=== PATIENT | female | born 1990 | race Caucasian/White ===

== ENCOUNTER 2021-01-10 10:55 | Emergency (ER) | payer OTHER ==
[2021-01-10 11:26] VITALS: RESP 18; TEMP 98
[2021-01-10] MEDS ORDERED: SODIUM CHLORIDE 0.9% 1,000 ML IV ONE (11:55)
[2021-01-10] MEDS ORDERED: ACETAMINOPHEN TAB 325 MG TAB PO STA (12:02)
--- NOTE | 2021-01-10 12:05 | US ---
EXAMINATION TYPE: Transabdominal DATE OF EXAM: 01/10/2021 11:50 AM COMPARISON: NONE CLINICAL HISTORY: pain. Pt states LLQ pain x 1 day, pt states she has a septated uterus EXAM PERFORMED: Transabdominal (TA) EXAM MEASUREMENTS: GESTATIONAL AGE / DATING Physician Established: Not yet established Dates by LMP: (7 weeks/0 days) EDC: 08/29/2021 Dates by First Scan: No previous this is first scan Dates by Current Scan for: (7 weeks/5 days) EDC: 08/24/2021 MATERNAL ANATOMY Uterus: 7.9 x 4.2 x 6.2 cm, bicornuate in appearance Right Ovary: 2.6 x 2.2 x 2.0 cm Left Ovary: 2.5 x 1.4 x 1.5 cm Post CDS / Adnexa: wnl Presence of free fluid: No Presence of corpus luteal cyst: Left ovary= 0.9 x 1.2 x 1.1 cm GESTATION / SURVEY CRL: 1.3 7weeks/ 5 days) Yolk Sac (normal less than 6mm): 3mm Heart Rate: 147 bpm Rhythm: Normal IUP: Viable IUP Date of LMP: 11/22/2020 Beta HcG (if available): Not available at this time Viable IUP, Uterus appeared bicornuate with IUP located within the "left horn" IMPRESSION: 1. Bicornuate uterus. 2. Intrauterine gestation within the left horn of the uterus. 3. Gestational age estimated at 7 weeks 5 days based on crown-rump length. Cardiac activity measures 147 bpm.
--- NOTE | 2021-01-10 12:24 | ED ---
General Adult HPI - General Chief complaint: Abdominal Pain Stated complaint: Abd Pain Time Seen by Provider: 01/10/21 11:43 Source: patient Mode of arrival: ambulatory Limitations: no limitations - History of Present Illness Initial comments: 30-year-old female patient presenting to the emergency department today for evaluation of left pelvic pain radiating to the left groin and lower back. States symptoms started yesterday. She did have positive test at home and believe she is on 7-8 weeks along. She is . Denies any abnormal vagi nal bleeding or discharge. Denies hematuria, dysuria, urinary frequency, urinary urgency. Denies fever or chills. States she has had a lot of nausea. States she is able to keep down food and fluids. Patient denies any recent rash, cough, shortness of breath, chest pain, numbness, tingling, dizziness, weakness, headache, visual changes, or any other complaints. - Related Data Home Medications Medication Instructions Recorded Confirmed Multivitamins, Thera [Multivitamin 1 tab PO DAILY 01/10/21 01/10/21 (formulary)] Previous Rx's Medication Instructions Recorded Cephalexin [Keflex] 500 mg PO Q6H #28 cap 01/10/21 Allergies Allergy/AdvReac Type Severity Reaction Status Date / Time No Known Allergies Allergy Verified 01/10/21 13:21 Review of Systems ROS Statement: Those systems with pertinent positive or pertinent negative responses have been documented in the HPI. ROS Other: All systems not noted in ROS Statement are negative. Past Medical History Past Medical History: No Reported History History of Any Multi-Drug Resistant Organisms: None Reported Past Surgical History: No Surgical Hx Reported Past Psychological History: No Psychological Hx Reported Smoking Status: Never smoker Past Alcohol Use History: Occasional Past Drug Use History: None Reported General Exam Limitations: no limitations General appearance: alert, in no apparent distress, other (This is a well- developed, well-nourished adult female patient in no acute distress. Vital signs upon presentation are temperature 98.0F, pulse 97, respirations 18, blood pressure 117/73, pulse ox 100% on room air.) Eye exam: Present: normal appearance, PERRL, EOMI. Absent: scleral icterus, conjunctival injection, periorbital swelling ENT exam: Present: normal exam, normal oropharynx, mucous membranes moist Respiratory exam: Present: normal lung sounds bilaterally. Absent: respiratory distress, wheezes, rales, rhonchi, stridor Cardiovascular Exam: Present: regular rate, normal rhythm, normal heart sounds. Absent: systolic murmur, diastolic murmur, rubs, gallop, clicks GI/Abdominal exam: Present: soft, tenderness (Left lower quadrant), normal bowel sounds. Absent: distended, guarding, rebound, rigid Neurological exam: Present: alert, oriented X3, CN II-XII intact Psychiatric exam: Present: normal affect, normal mood Skin exam: Present: warm, dry, intact, normal color. Absent: rash Course Vital Signs 01/10/21 01/10/21 11:24 13:58 Temperature 98.0 F Pulse Rate 97 77 Respiratory 18 18 Rate Blood Pressure 117/73 110/64 O2 Sat by Pulse 100 99 Oximetry Medical Decision Making - Medical Decision Making 30 year-old female patient presents to the emergency department for evaluation of left pelvic pain with radiation to the left groin. She is , . Physical exam reveals left lower quadrant tenderness. Labs reviewed and did reveal hCG of 62,000. Ultrasound showed a viable intrauterine measuring 7 weeks 1 day of a heart rate of 142. No other complicating process is seen. She is given Tylenol. Upon reevaluation states her pain is somewhat improved. I did go over all results with her. She is instructed to increase fluids. Rest. Follow up with OBGYN as soon as possible. She is instructed return for any new, worsening, or concerning symptoms. Case discussed in my attending Dr. Valles. - Lab Data Result diagrams: 01/10/21 12:02 01/10/21 12:02 Lab Results 01/10/21 01/10/21 01/10/21 Range/Units 12:02 12:02 12:02 WBC 6.3 (3.8-10.6) k/uL RBC 4.48 (3.80-5.40) m/uL Hgb 14.0 (11.4-16.0) gm/dL Hct 41.4 (34.0-46.0) % MCV 92.5 (80.0-100.0) fL MCH 31.2 (25.0-35.0) pg MCHC 33.8 (31.0-37.0) g/dL RDW 12.9 (11.5-15.5) % Plt Count 198 (150-450) k/uL MPV 9.3 Neutrophils % 71 % Lymphocytes % 19 % Monocytes % 7 % Eosinophils % 1 % Basophils % 1 % Neutrophils # 4.4 (1.3-7.7) k/uL Lymphocytes # 1.2 (1.0-4.8) k/uL Monocytes # 0.5 (0-1.0) k/uL Eosinophils # 0.1 (0-0.7) k/uL Basophils # 0.0 (0-0.2) k/uL Sodium 134 L (137-145) mmol/L Potassium 4.0 (3.5-5.1) mmol/L Chloride 101 (98-107) mmol/L Carbon Dioxide 27 (22-30) mmol/L Anion Gap 6 mmol/L BUN 5 L (7-17) mg/dL Creatinine 0.50 L (0.52-1.04) mg/dL Est GFR (CKD-EPI)AfAm >90 (>60 ml/min/1.73 sqM) Est GFR (CKD-EPI)NonAf >90 (>60 ml/min/1.73 sqM) Glucose 93 (74-99) mg/dL Calcium 9.6 (8.4-10.2) mg/dL Total Bilirubin 1.0 (0.2-1.3) mg/dL AST 34 (14-36) U/L ALT 9 (4-34) U/L Alkaline Phosphatase 21 L (38-126) U/L Total Protein 7.2 (6.3-8.2) g/dL Albumin 4.5 (3.5-5.0) g/dL HCG, Quant 26384.2 mIU/mL Urine Color Yellow Urine Appearance Cloudy H (Clear) Urine pH 6.0 (5.0-8.0) Ur Specific [place] 1.022 (1.001-1.035) Urine Protein Trace H (Negative) Urine Glucose (UA) Negative (Negative) Urine Ketones 1+ H (Negative) Urine Blood Negative (Negative) Urine Nitrite Negative (Negative) Urine Bilirubin Negative (Negative) Urine Urobilinogen <2.0 (<2.0) mg/dL Ur Leukocyte Esterase Large H (Negative) Urine RBC 2 (0-5) /hpf Urine WBC 6 H (0-5) /hpf Ur Squamous Epith Cells 12 H (0-4) /hpf Urine Bacteria Occasional H (None) /hpf Urine Mucus Many H (None) /hpf - Radiology Data Radiology results: report reviewed Ultrasound is obtained. Report reviewed in its entirety. Impression by Dr. Georges shows bicornuate uterus. Intrauterine gestation within the left corner the uterus. Gestational age measured at 7 weeks 5 days based on crown-rump length. Cardiac activity measures 147 bpm. Disposition Clinical Impression: Abdominal pain during Disposition: HOME SELF-CARE Condition: Good Instructions (If sedation given, give patient instructions): Abdominal Pain in (ED) Additional Instructions: Follow-up with the [facility] for recheck as soon as possible, call tomorrow for further instruction and possible sooner appointment. Increase fluids. Rest. Return for any new, worsening, or concerning symptoms. Prescriptions: Cephalexin [Keflex] 500 mg PO Q6H #28 cap Is patient prescribed a controlled substance at d/c from ED?: No Referrals: Juju Garcia DO [Doctor of Osteopathic Medicine] - 1-2 days Time of Disposition: 13:47
[2021-01-10 12:37] LABS: Basophils % (A) 1 %; Eosinophils # (A) 0.1 k/uL (0-0.7); Eosinophils % (A) 1 %; HCT 41.4 % (34.0-46.0); Lymphocytes # (A) 1.2 k/uL (1.0-4.8); Lymphocytes % (A) 19 %; MCH 31.2 pg (25.0-35.0); MCHC 33.8 g/dL (31.0-37.0); MCV 92.5 fL (80.0-100.0); Mean Platelet Volume 9.3; Monocytes # (A) 0.5 k/uL (0-1.0); Monocytes % (A) 7 %; Neutrophils # (A) 4.4 k/uL (1.3-7.7); Neutrophils % (A) 71 %; Platelet Count 198 k/uL (150-450); RBC 4.48 m/uL (3.80-5.40); RDW 12.9 % (11.5-15.5); WBC 6.3 k/uL (3.8-10.6)
[2021-01-10 12:38] LABS: ALT 9 U/L (4-34); African American GFR (CKD) >90 (>60 ml/min/1.73 sqM); Albumin 4.5 g/dL (3.5-5.0); Anion Gap 6 mmol/L; Blood Urea Nitrogen 5 mg/dL (7-17); Calcium 9.6 mg/dL (8.4-10.2); Carbon Dioxide 27 mmol/L (22-30); Chloride 101 mmol/L (98-107); Glucose 93 mg/dL (74-99); Non-African American GFR(CKD) >90 (>60 ml/min/1.73 sqM); Sodium 134 mmol/L (137-145); Total Protein 7.2 g/dL (6.3-8.2)
[2021-01-10 12:47] LABS: AST 34 U/L (14-36); Alkaline Phosphatase 21 U/L (38-126)
[2021-01-10 13:03] LABS: Appearance,Urine Cloudy (Clear); Bacteria,Urine Occasional /hpf; Bilirubin,Urine Negative (Negative); Blood,Urine Negative (Negative); Color,Urine Yellow; Glucose,Urine (UA) Negative (Negative); Ketones,Urine 1+ (Negative); Leukocyte Esterase,Urine Large (Negative); Mucus,Urine Many /hpf; Nitrite,Urine Negative (Negative); Protein,Urine Trace (Negative); RBC,Urine 2 /hpf (0-5); Specific Gravity,Urine 1.022 (1.001-1.035); Squamous Epithelial Cell,Urine 12 /hpf (0-4); Urobilinogen,Urine <2.0 mg/dL (<2.0); WBC,Urine 6 /hpf (0-5)
[2021-01-10 13:26] LABS: HCG,Quantitative Serum 62806.2 mIU/mL
[2021-01-10] MEDS ORDERED: CEPHALEXIN 500MG STARTER PACK 4 CAP BTL PO STA (13:46)
[2021-01-10 13:59] VITALS: BP 110/64; PULSE 77
== END 2021-01-10 13:58 | disposition home or self-care (01) ==
LOC: EC 10:55
DX: O26.891 Other specified pregnancy related conditions, first trimester (principal); R10.32 Left lower quadrant pain; Z3A.01 Less than 8 weeks gestation of pregnancy
CPT/HCPCS: 36415; 76801; 80053; 81001; 84702; 85025; 99284

== ENCOUNTER → 2021-02-11 | Outpatient (CLI) | payer MEDICAID ==
[2021-02-12 00:18] LABS: HCT 36.3 % (37.2-46.3); MCH 31.3 pg (27.0-32.0); MCHC 33.1 g/dL (32.0-37.0); MCV 94.5 fL (80.0-97.0); Mean Platelet Volume 10.1 fL (9.5-12.2); Platelet Count 275 X 10*3/uL (140-440); RBC 3.84 X 10*6/uL (4.10-5.20); RDW 12.7 % (11.5-14.5); WBC 9.28 X 10*3/uL (4.50-10.00)
[2021-02-12 02:05] LABS: HIV 2 AB Non-Reactive (Non-Reactive); HIV AB P24 Non-Reactive (Non-Reactive); HIV P24 AG Non-Reactive (Non-Reactive)
[2021-02-12 02:52] LABS: African American GFR (CKD) 143.8 (60.0-200.0)
[2021-02-12 04:33] LABS: Hepatitis B Surface Antigen Non-Reactive (Non-Reactive)
[2021-02-13 06:53] LABS: Toxoplasma Antibody (IgG) <3.0 IU/mL (<7.2); Toxoplasma Antibody (IgM) <3.0 AU/mL (<8.0)
== END | disposition home or self-care (01) ==
LOC: LABWHC1 15:30
PROVIDERS: ATTEND Obstetrics & Gynecology
DX: Z34.01 Encounter for supervision of normal first pregnancy, first trimester (principal); Z3A.00 Weeks of gestation of pregnancy not specified
CPT/HCPCS: 36415; 82565; 82947; 85027; 86762; 86777; 86778; 86780; 86850; 86900; 86901; 87340; 87390

== ENCOUNTER → 2021-03-21 | Outpatient (CLI) | payer MEDICAID ==
[2021-03-25 14:01] LABS: Alpha Fetoprotein 83.7 ng/mL; Alpha Fetoprotein (M.O.M) 2.26; B-HCG (M.O.M.) 0.95; Gestational Age (days) 0; Human Chorionic Gonadotropin 25.5 IU/mL; Inhibin A (M.O.M.) 0.64; Interpretation SeeBelow; Maternal Age at EDD (Yrs) 29; Smoker No; Unconjugated Estriol (M.O.M.) 0.95
== END | disposition home or self-care (01) ==
LOC: LABWHC1 14:34
PROVIDERS: ATTEND Obstetrics & Gynecology
DX: Z34.02 Encounter for supervision of normal first pregnancy, second trimester (principal); Z3A.17 17 weeks gestation of pregnancy
CPT/HCPCS: 36415; 82105; 82677; 84702; 86336

== ENCOUNTER → 2021-04-05 | Outpatient (CLI) | payer MEDICAID ==
--- NOTE | 2021-04-05 15:27 | US ---
EXAMINATION TYPE: US OB anatomy transabd DATE OF EXAM: 04/05/2021 COMPARISON: NONE HISTORY: O36.62X0 Maternal care for excessive Anatomy TECHNIQUE: Transabdominal (TA) EXAM MEASUREMENTS: GESTATIONAL AGE / DATING Physician Established: (19 weeks/1 days) EDC: 12 Dates by LMP: (19 weeks/1 days) EDC: 08/29/2021 Dates by First Scan: (19 weeks/6 days) EDC: 08/24/2021 Dates by Current Scan for: (20 weeks/0 days) EDC: 08/23/2021 SURVEY IUP: Single PLACENTA: Posterior PREVIA: No previa EDGAR: 13.26 cm Normal CERVICAL LENGTH (transvaginal: norm> 2.5cm): 4.6 cm BIOMETRY PRESENTATION: Vertex LIE: Longitudinal BPD: 4.8 cm 20 weeks / 4 days HC: 17.21 cm 19 weeks / 6 days AC: 13.71 cm 19 weeks / 1 days FL: 3.2 cm 20 weeks / 0 days ESTIMATED WEIGHT IN GRAMS: 299 grams ESTIMATED WEIGHT IN LBS/OZ: 0 lbs. 11 oz. WEIGHT PERCENTAGE BASED ON ESTABLISHED DATE: 70 % HC/AC: 1.26 CM Normal FL/AC: 23% HEART RATE: 150 bpm RHYTHM: Normal ANATOMY SEEN (within normal limits): * Lateral Vent (< 1 cm) .8 cm * Cisterna Magna (< 1.1 cm) ..6 cm * Nuchal Fold (< 0.6 cm) .. 3 cm * Cerebellum (varies with age) 2.0 cm Choroid Plexus (bilateral) Midline Falx Four Chamber Heart Stomach Situs Nose / Lips Diaphragm Kidneys (bilateral) Bladder Cord Insert Three Vessel Cord Longitudinal Spine Transverse Spine Arms (bilateral) Legs (bilateral) ANATOMY SEEN (does not appear within normal limits): ANATOMY NOT SEEN: Outflow tracts: LVOT/RVOT Cavus Septi Pellucidi Limited due to baby position patient coming back in 2 weeks. IMPRESSION: 1. Limited evaluation due to positioning. The outflow tracts of the heart are not visuali zed. Cava septum pellucidum is not visualized. The patient will return for additional evaluation. 2. Single intrauterine with an average ultrasound gestational age of 20 weeks. Placenta is posterior. No evidence of placenta previa. Amniotic fluid index is 13.26 cm. lie is cephalic. P lease see biometrics above. heart rate is 150 bpm.
== END | disposition home or self-care (01) ==
LOC: RADUSWWP 09:25
PROVIDERS: ATTEND Obstetrics & Gynecology
DX: O36.62X0 Maternal care for excessive fetal growth, second trimester, not applicable or unspecified (principal); Z3A.20 20 weeks gestation of pregnancy
CPT/HCPCS: 76811

== ENCOUNTER → 2021-05-17 | Outpatient (CLI) | payer MEDICAID ==
[2021-05-17 15:06] LABS: HCT 37.6 % (37.2-46.3); HGB 12.4 g/dL (12.0-15.0); MCH 32.4 pg (27.0-32.0); MCV 98.2 fL (80.0-97.0); Mean Platelet Volume 10.4 fL (9.5-12.2); Platelet Count 270 X 10*3/uL (140-440); RBC 3.83 X 10*6/uL (4.10-5.20); RDW 13.1 % (11.5-14.5)
== END | disposition home or self-care (01) ==
LOC: LABWHC1 07:54
PROVIDERS: ATTEND Obstetrics & Gynecology
DX: Z34.02 Encounter for supervision of normal first pregnancy, second trimester (principal); Z3A.00 Weeks of gestation of pregnancy not specified
CPT/HCPCS: 36415; 82950; 85027

== ENCOUNTER → 2021-06-17 | Outpatient (CLI) | payer MEDICAID, OTHER | END | disposition home or self-care (01) | LOC: LABWHC1 09:44 | PROVIDERS: ATTEND Emergency Medicine | DX: Z20.822 Contact with and (suspected) exposure to COVID-19 (principal) | CPT/HCPCS: 87635 ==

== ENCOUNTER → 2021-06-18 | Outpatient (CLI) | payer MEDICAID, OTHER | END | disposition home or self-care (01) | LOC: LABWHC1 11:08 | PROVIDERS: ATTEND Emergency Medicine | DX: Z20.822 Contact with and (suspected) exposure to COVID-19 (principal) | CPT/HCPCS: 87635 ==